=== PATIENT | female | born 1965 | race Caucasian/White ===

== ENCOUNTER → 2016-10-15 | Outpatient (CLI) | payer BC ==
[~2016-10-15] MED LIST: BUPR-79 PO; CLON0.5T3 PO; DOXY100C76 PO; FEXO1TAB58 PO; GABA1CAP PO; OXYC-57 PO; RIZA10TA18 PO; SUMA6KIT
== END | disposition home or self-care (01) ==
LOC: C.LABSPEC 11:00
PROVIDERS: ATTEND Urology
DX: N20.0 Calculus of kidney (principal)

== ENCOUNTER → 2016-10-15 | Outpatient (CLI) | payer BC ==
--- NOTE | 2016-10-15 09:50 | DIAGNOSTIC IMAGING REPORT ---
KUB CLINICAL HISTORY: N20.0 Nephrolithiasis nephrocalcinosis COMPARISON STUDY: 10/03/2016 FINDINGS: Interval fragmentation of the 4 mm calcification previous described lower pole right kidney. The residual calcifications measure 2.5 mm and 1 mm. No significant paravertebral calcifications. Several pelvic vascular calcifications. IMPRESSION: Interval fragmentation of the 4 mm calculus lower pole right kidney. Several small fragments localized in the general vicinity of the previously noted calcification Electronically signed by: Quinn Rider M.D. 10/15/2016 9:48 AM
== END | disposition home or self-care (01) ==
LOC: C.RAD 08:34
PROVIDERS: ATTEND Urology
DX: N20.0 Calculus of kidney (principal)

== ENCOUNTER → 2017-01-21 | Outpatient (CLI) | payer BC ==
[~2017-01-21] MED LIST changes: -DOXY100C76 PO; -OXYC-57 PO
--- NOTE | 2017-01-22 12:46 | MAMMOGRAPHY REPORT ---
BILATERAL DIGITAL SCREENING MAMMOGRAM TOMOSYNTHESIS WITH CAD: 01/21/2017 CLINICAL HISTORY: Routine screening examination. TECHNIQUE: Breast tomosynthesis in addition to standard 2D mammography was performed. Current study was also evaluated with a Computer Aided Detection (CAD) system. COMPARISON: Comparison is made to exams dated: 01/17/2016 mammogram, 01/19/2015 mammogram, 01/19/2015 ult rasound, 01/16/2015 mammogram, 01/11/2014 mammogram, and 01/08/2013 mammogram - [facility]. BREAST COMPOSITION: The tissue of both breasts is heterogeneously dense, which may obscure small ma sses. FINDINGS: The parenchymal pattern is unchanged. No developing mass, architectural distortion or clu ster of suspicious microcalcifications is seen in either breast. IMPRESSION: ACR BI-RADS CATEGORY 2: BENIGN There is no mammographic evidence of malignancy. A 1 year screening mammogram is recommended. The p atient will receive written notification of the results. Approximately 10% of breast cancers are not detected with mammography. A negative mammographic repor t should not delay biopsy if a clinically suggestive mass is present. Nicolette Leslie M.D. ay/:01/21/2017 16:42:51 Wheel And Caster Repairer: Dimple MONTEZ(R)(M), [facility] [address] letter sent: Normal 1/2 BI-RADS Code: ACR BI-RADS Category 2: Benign
== END | disposition home or self-care (01) ==
LOC: C.MAMM 07:58
PROVIDERS: ATTEND Obstetrics & Gynecology
DX: Z12.31 Encounter for screening mammogram for malignant neoplasm of breast (principal)

== ENCOUNTER → 2017-10-30 | Outpatient (CLI) | payer OTHER ==
[~2017-10-30] MED LIST changes: -BUPR-79 PO; -CLON0.5T3 PO; -FEXO1TAB58 PO; -RIZA10TA18 PO; -SUMA6KIT
--- NOTE | 2017-10-30 10:03 | DIAGNOSTIC IMAGING REPORT ---
KUB CLINICAL HISTORY: N20.0 [id number] nephrocalcinosis COMPARISON STUDY: 10/15/2016 FINDINGS: Right kidney is obscured due to overlying bowel content. Left kidney is negative for significant nephrocalcinosis. Several pelvic calcifications on the right and to lesser extent left considered to be vascular. These are unchanged. Bowel pattern is considered nonobstructive. Increased fecal load throughout the colon is present consistent with at least a mild component of fecal stasis. IMPRESSION: 1. Nondiagnostic evaluation of the right kidney as it is obscured by fecal material. 2. No significant left renal nephrocalcinosis. 3. Moderate increase in fecal load throughout the colon consistent with fecal stasis. The above report was generated using voice recognition software. It may contain grammatical, syntax or spelling errors. Electronically signed by: Quinn Rider M.D. 10/30/2017 10:01 AM Dictated Date/Time: 10/30/2017 9:59 AM
== END | disposition home or self-care (01) ==
LOC: C.RAD 09:33
PROVIDERS: ATTEND Urology
DX: N20.0 Calculus of kidney (principal); K59.00 Constipation, unspecified

== ENCOUNTER → 2018-01-23 | Outpatient (CLI) | payer OTHER ==
[~2018-01-23] MED LIST changes: +ASPI-390 PO; +BUPR-79 PO; +CLON0.5T3 PO; +GABA100C13 PO; -GABA1CAP PO
--- NOTE | 2018-01-26 07:44 | MAMMOGRAPHY REPORT ---
BILATERAL DIGITAL SCREENING MAMMOGRAM TOMOSYNTHESIS WITH CAD: 01/23/2018 CLINICAL HISTORY: Routine screening. Patient has no complaints. TECHNIQUE: Breast tomosynthesis in addition to standard 2D mammography was performed. Current study was also evaluated with a Computer Aided Detection (CAD) system. COMPARISON: Comparison is made to exams dated: 01/21/2017 mammogram, 01/17/2016 mammogram, 01/19/2015 kristal mogram, 01/19/2015 ultrasound, 01/16/2015 mammogram, and 01/11/2014 mammogram - [facility] BREAST COMPOSITION: The tissue of both breasts is heterogeneously dense, which may obscure small mas ses. FINDINGS: No suspicious masses, calcifications, or areas of architectural distortion are noted in ei ther breast. There has been no significant interval change compared to prior exams. IMPRESSION: ACR BI-RADS CATEGORY 1: NEGATIVE There is no mammographic evidence of malignancy. A 1 year screening mammogram is recommended. The pa tient will receive written notification of the results. Approximately 10% of breast cancers are not detected with mammography. A negative mammographic report should not delay biopsy if a clinically suggestive mass is present. Carolina Benavidez M.D. ah/:01/23/2018 15:55:13 Resource Conservation Manager: Sabrina MONTEZ(Luz)(M), [facility] letter sent: Normal 1/2 BI-RADS Code: ACR BI-RADS Category 1: Negative
== END | disposition home or self-care (01) ==
LOC: C.MAMM 08:36
PROVIDERS: ATTEND Obstetrics & Gynecology
DX: Z12.31 Encounter for screening mammogram for malignant neoplasm of breast (principal)